=== PATIENT | male | born 2000 | race Two or more races ===

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

== ENCOUNTER 2021-07-01 10:13 | Emergency (ER) | payer OTHER ==
[2021-07-01 10:29] VITALS: BP 107/49; PULSE 64; RESP 18; TEMP 98.6
--- NOTE | 2021-07-01 11:26 | ED ---
General Adult HPI - General Chief complaint: Upper Respiratory Infection Stated complaint: sore throat, congestion Time Seen by Provider: 07/01/21 11:20 Source: patient Limitations: no limitations - History of Present Illness Initial comments: 20-year-old male without any significant past medical history presents to the emergency room for a COVID-19 test. Patient reports for the past 2-3 days he has not felt well. He has had a cough and scratchy throat. He has not had any fevers. He is also congestion. Patient states he only wants a COVID-19 test and otherwise thinks he has a cold.Patient has no other complaints at this time including shortness of breath, chest pain, abdominal pain, nausea or vomiting, headache, or visual changes. - Related Data Home Medications Medication Instructions Recorded Confirmed No Known Home Medications 10/25/17 06/13/18 Allergies Allergy/AdvReac Type Severity Reaction Status Date / Time No Known Allergies Allergy Verified 07/01/21 10:26 Review of Systems ROS Statement: Those systems with pertinent positive or pertinent negative responses have been documented in the HPI. ROS Other: All systems not noted in ROS Statement are negative. Past Medical History Past Medical History: No Reported History History of Any Multi-Drug Resistant Organisms: None Reported Past Surgical History: No Surgical Hx Reported Past Psychological History: Depression Smoking Status: Vaper Past Alcohol Use History: None Reported Past Drug Use History: Marijuana General Exam Limitations: no limitations General appearance: alert, in no apparent distress Head exam: Present: atraumatic Eye exam: Present: normal appearance, PERRL, EOMI. Absent: scleral icterus, conjunctival injection ENT exam: Present: normal exam, mucous membranes moist Neck exam: Present: normal inspection, full ROM. Absent: tenderness Respiratory exam: Present: normal lung sounds bilaterally. Absent: respiratory distress, wheezes Cardiovascular Exam: Present: regular rate, normal rhythm, normal heart sounds GI/Abdominal exam: Present: soft, normal bowel sounds. Absent: distended, tenderness Neurological exam: Present: alert Course Vital Signs 07/01/21 10:26 Temperature 98.6 F Pulse Rate 64 Respiratory 18 Rate Blood Pressure 107/49 O2 Sat by Pulse 100 Oximetry Medical Decision Making - Medical Decision Making COVID-19 is negative. Patient does not want any further workup and is requesting prompt discharge home. Will return here for worsening symptoms and will otherwise follow up outpatient. Disposition Clinical Impression: Lab test negative for COVID-19 virus Disposition: HOME SELF-CARE Condition: Good Instructions (If sedation given, give patient instructions): Upper Respiratory Infection (ED) Is patient prescribed a controlled substance at d/c from ED?: No Referrals: Celine Rodriguez MD [REFERRING] - 1-2 days Time of Disposition: 11:26
== END 2021-07-01 11:41 | disposition home or self-care (01) ==
LOC: EC 10:13
DX: R07.0 Pain in throat (principal); R09.89 Other specified symptoms and signs involving the circulatory and respiratory systems; R05.9 Cough, unspecified; F17.290 Nicotine dependence, other tobacco product, uncomplicated; Z20.822 Contact with and (suspected) exposure to COVID-19
CPT/HCPCS: 87635; 99283

== ENCOUNTER 2021-07-25 01:02 | Emergency (ER) | payer OTHER ==
[2021-07-25 01:12] VITALS: BP 113/65; PULSE 86; RESP 16; TEMP 98.2
[2021-07-25] MEDS ORDERED: ACET/COD 300 MG/30 MG STARTER PACK 6 TAB BTL PO STA ×2 (01:32)
--- NOTE | 2021-07-25 01:34 | ED ---
ENT HPI - General Chief complaint: Dental/Oral Stated complaint: Tooth pain Time Seen by Provider: 07/25/21 01:14 Source: patient Mode of arrival: ambulatory Limitations: no limitations - History of Present Illness Initial comments: 21-year-old male patient presents to the emergency department today for evaluation of right lower dental pain. Patient had wisdom tooth extraction 3 days ago. States that his pain started to increase earlier today. Denies any increased swelling. States he feels warm drainage from the area that tastes bad. He denies any fever or chills. States he has been taking Tylenol Motrin without relief. He is not currently on any antibiotics. His oral surgeon was Dr. Vargas. - Related Data Previous Rx's Medication Instructions Recorded Acetaminophen-Codeine 300-30mg 1 tab PO Q6H PRN #12 tablet 07/25/21 [Tylenol #3] Amoxic-Pot Clav 875-125Mg 1 tab PO Q12HR #20 tablet 07/25/21 [Augmentin 875-125] Allergies Allergy/AdvReac Type Severity Reaction Status Date / Time No Known Allergies Allergy Verified 07/25/21 01:08 Review of Systems ROS Statement: Those systems with pertinent positive or pertinent negative responses have been documented in the HPI. ROS Other: All systems not noted in ROS Statement are negative. Past Medical History Past Medical History: No Reported History History of Any Multi-Drug Resistant Organisms: None Reported Past Surgical History: No Surgical Hx Reported Past Psychological History: Depression Smoking Status: Vaper Past Alcohol Use History: Occasional Past Drug Use History: Marijuana General Exam Limitations: no limitations General appearance: alert, in no apparent distress, other (This is a well- developed, well-nourished adult male in no acute distress) ENT exam: Present: mucous membranes moist, other (There is surgical site to the right posterior lower dentition. There is open wound, no blood clot noted. No sign of drainable abscess.) Respiratory exam: Present: normal lung sounds bilaterally. Absent: respiratory distress, wheezes, rales, rhonchi, stridor Cardiovascular Exam: Present: regular rate, normal rhythm, normal heart sounds. Absent: systolic murmur, diastolic murmur, rubs, gallop, clicks Neurological exam: Present: alert, oriented X3, CN II-XII intact Psychiatric exam: Present: normal affect, normal mood Skin exam: Present: warm, dry, intact, normal color. Absent: rash Course Vital Signs 07/25/21 01:08 Temperature 98.2 F Pulse Rate 86 Respiratory 16 Rate Blood Pressure 113/65 O2 Sat by Pulse 99 Oximetry Medical Decision Making - Medical Decision Making 21-year-old male patient presented for evaluation of right lower dental pain after having wisdom tooth extraction with Dr. Vargas 3 days ago. Physical examination did reveal evidence for dry socket. No evidence for drainable abscess. He is given pain medication. Also given antibiotics for possibility of early abscess. He'll be discharged follow-up with Dr. Vargas in the morning as he has planned. Has appointment in a.m. Return parameters were discussed in detail. He verbalizes understanding and agrees with this plan. My attending is Dr. Bradshaw. Disposition Clinical Impression: Dental abscess, Dry tooth socket Disposition: HOME SELF-CARE Condition: Good Instructions (If sedation given, give patient instructions): Dental Abscess (ED), Dry Socket (ED) Additional Instructions: Apply cool compresses to the face. Take medication as directed. Complete antibiotic prescription in full. Follow up with oral surgeon tomorrow as you have planned. Return for any new, worsening, or concerning symptoms. Prescriptions: Amoxic-Pot Clav 875-125Mg [Augmentin 875-125] 1 tab PO Q12HR #20 tablet Acetaminophen-Codeine 300-30mg [Tylenol #3] 1 tab PO Q6H PRN #12 tablet PRN Reason: Pain Is patient prescribed a controlled substance at d/c from ED?: No Referrals: Jose Miguel Ya MD [Primary Care Provider] - 1-2 days Time of Disposition: 01:34
[2021-07-25] MEDS ORDERED: AMOXIC-POT CLAV 875MG STARTER PACK 2 TAB BTL PO STA (01:51)
== END 2021-07-25 02:08 | disposition home or self-care (01) ==
LOC: EC 01:02
DX: K04.7 Periapical abscess without sinus (principal); M27.3 Alveolitis of jaws; F17.290 Nicotine dependence, other tobacco product, uncomplicated